=== PATIENT | female | born 1975 | race Two or more races ===

== ENCOUNTER 2018-04-29 18:14 | Emergency (ER) | payer BC, OTHER ==
[2018-04-29 18:28] VITALS: BP 154/107; PULSE 77; TEMP 98.6; BMI 34.1
--- NOTE | 2018-04-29 18:29 | PDOC ---
Rapid Medical Evaluation Time Seen by Provider: 04/29/18 18:27 Medical Evaluation: Allergies Allergy/AdvReac Type Severity Reaction Status Date / Time No Known Allergies Allergy Verified 04/29/18 18:26 04/29/18 18:27 Pt presents with two days of low back pain. Today patient states that the pain is running down her R leg and that it hurts to walk. No saddle anesthesia, no bladder/bowel incontinence Exam: (+) straight leg raise on the R, Ambulatory Orders: nothing Pt to present to ED for further evaluation Discharge Disposition - Diagnosis Back pain - Referrals - Patient Instructions - Post Discharge Activity
[2018-04-29] MEDS ORDERED: KETOROLAC TROMETHAMINE 60 MG/2 ML VIAL IM ONE (19:26)
[2018-04-29] MEDS ORDERED: CYCLOBENZAPRINE HCL 10 MG TABLET (FP) PO ONE (19:26)
[2018-04-29] MEDS ORDERED: KETOROLAC TROMETHAMINE 60 MG/2 ML VIAL ONE (19:31)
[2018-04-29] MEDS ORDERED: CYCLOBENZAPRINE HCL 10 MG TABLET (FP) ONE (19:31)
--- NOTE | 2018-04-29 19:32 | PDOC ---
History of Present Illness - General Chief Complaint: Back Pain Stated Complaint: BACK/LEG PAIN Time Seen by Provider: 04/29/18 18:27 History Source: Patient - History of Present Illness Occurred: reports: yesterday Severity: reports: severe Pain Location: reports: back Past History - Past Medical History Allergies/Adverse Reactions: Allergies Allergy/AdvReac Type Severity Reaction Status Date / Time No Known Allergies Allergy Verified 04/29/18 18:26 Home Medications: Ambulatory Orders Cyclobenzaprine HCl [Flexeril -] 10 mg PO TID #9 tablet 04/29/18 Ibuprofen [Motrin -] 2 tab PO Q6H #30 tablet 04/29/18 Tramadol HCl 50 mg PO Q6H #8 tablet MDD 200 mg 04/29/18 - Suicide/Smoking/Psychosocial Hx Smoking History: Never smoked Hx Alcohol Use: No Drug/Substance Use Hx: No Review of Systems - Review of Systems Constitutional: No: Chills, Fever ABD/GI: No: Nausea, Vomiting, Abdominal cramping : No: Burning, Dysuria, Flank Pain, Hematuria Musculoskeletal: Yes: Back Pain. No: Muscle Weakness Neurological: No: Numbness, Tingling, Weakness *Physical Exam - Vital Signs Last Vital Signs Temp Pulse Resp BP Pulse Ox 98.6 F 77 18 154/107 100 04/29/18 18:26 04/29/18 18:26 04/29/18 18:26 04/29/18 18:26 04/29/18 18:26 - Physical Exam General Appearance: Yes: Appropriately Dressed, Mild Distress HEENT: positive: Normal Voice Neck: positive: Supple Respiratory/Chest: negative: Respiratory Distress Gastrointestinal/Abdominal: positive: Soft. negative: Tender, Pulsatile Mass Musculoskeletal: positive: Normal Inspection. negative: CVA Tenderness, Vertebral Tenderness Extremity: positive: Normal Inspection Integumentary: positive: Dry, Warm Neurologic: positive: Fully Oriented, Alert, Normal Mood/Affect, Motor Strength 5/5, Other (? + SLR on the R, slight limp in ED) Medical Decision Making - Medical Decision Making 04/29/18 19:27 42-year-old female, denies any past medical history here with lower back pain since yesterday. States pain radiates to right leg. Describes pain as pressure -like in nature, constant, 10 out of 10 and worse with movement. Denies any trauma or other obvious inciting factors. Took Motrin and Tylenol at home with no relief. No lower extremity sensory changes, extremity weakness, saddle anesthesia or bowel or bladder incontinence. No history of similar pain in the past. Denies any dysuria, hematuria, nausea, vomiting, fever or chills. No history of kidney stones. No abdominal pain. See exam LBP w/ ?sciatica No red flags at this time, i.e cauda equina, infxn, no suspicion for aortic source -pain control in ED and reassess 04/29/18 20:00 Patient reports significant improvement with meds. Stable for discharge with prescription and follow-up with her PMD *DC/Admit/Observation/Transfer Diagnosis at time of Disposition: Back pain Qualifiers: Back pain location: low back pain Chronicity: acute Back pain laterality: midline Sciatica presence: unspecified whether sciatica present Qualified Code(s ): M54.5 - Low back pain - Discharge Dispostion Disposition: HOME Condition at time of disposition: Improved - Prescriptions Prescriptions: Cyclobenzaprine HCl [Flexeril -] 10 mg PO TID #9 tablet Ibuprofen [Motrin -] 2 tab PO Q6H #30 tablet Tramadol HCl 50 mg PO Q6H #8 tablet MDD 200 mg - Referrals Referrals: Americo Uribe MD [Primary Care Provider] - - Patient Instructions Printed Discharge Instructions: Low Back Pain Additional Instructions: Take medications as prescribed for pain. If pain persists past 2 weeks, please follow-up with your primary care physician - Post Discharge Activity
== END 2018-04-29 20:08 | disposition home or self-care (01) ==
LOC: JERFT 18:14
PROC: 3E0233Z Introduction of Anti-inflammatory into Muscle, Percutaneous Approach (ICD-10-PCS; principal; 2018-04-29)
DX: M54.5 Low back pain (principal)
CPT/HCPCS: 99281-25

== ENCOUNTER 2021-10-30 16:31 | Emergency (ER) | payer OTHER ==
[2021-10-30 16:57] VITALS: TEMP 97.8; BMI 34.1
[2021-10-30 19:22] LABS: BASO % 0.7 % (0-2.0); EOS % 2.9 % (0-4.5); HEMATOCRIT 36.1 % (32.4-45.2); HEMOGLOBIN 12.1 GM/dL (10.7-15.3); LYMPH % 31.6 % (8-40); MCH 29.1 pg (25.7-33.7); MCHC 33.5 g/dl (32.0-36.0); MEAN PLT VOLUME 8.4 fl (7.5-11.1); MONO % 6.4 % (3.8-10.2); NEUT % 58.4 % (42.8-82.8); PLATELET COUNT 317 10^3/uL (134-434); RBC 4.16 M/mm3 (3.60-5.2); WHITE BLOOD COUNT 11.4 K/mm3 (4.0-10.0)
[2021-10-30 19:26] LABS: INR 1.08 (0.83-1.09); PROTHROMBIN TIME (PATIENT) 12.4 SEC (9.7-13.0)
[2021-10-30 20:13] LABS: CHLORIDE 103 mmol/L (98-107); SODIUM 139 mmol/L (136-145)
[2021-10-30 20:17] LABS: CALCIUM 9.9 mg/dL (8.5-10.1)
[2021-10-30 20:18] LABS: ALBUMIN 3.9 g/dl (3.4-5.0); ANION GAP 6 MMOL/L (8-16); BLOOD UREA NITROGEN 17.8 mg/dL (7-18); CO2 29 mmol/L (21-32); GLUCOSE,RANDOM 91 mg/dL (74-106)
[2021-10-30 20:21] LABS: CREATININE 0.9 mg/dL (0.55-1.3); SGOT/AST 13 U/L (15-37); SGPT/ALT 21 U/L (13-61)
[2021-10-30 20:22] LABS: BILIRUBIN,TOTAL 0.2 mg/dL (0.2-1)
[2021-10-30 20:23] LABS: TOT PROT 7.6 g/dl (6.4-8.2)
[2021-10-30 20:24] LABS: ALK PHOS 75 U/L (45-117)
[2021-10-30 21:18] VITALS: BP 132/82; PULSE 80
== END 2021-10-30 21:19 | disposition home or self-care (01) ==
LOC: JER 16:31
DX: R07.9 Chest pain, unspecified (principal)
CPT/HCPCS: 36415; 71046-TC-FY; 80053; 82550; 84443; 84484; 84703; 85025; 85610; 93005; 93010; 99285-25